=== PATIENT | female | born 1960 | race Native Hawaiian/Other Pacific Islander ===

== ENCOUNTER 2017-01-22 01:07 | Emergency (ER) | payer SELFPAY ==
--- NOTE | 2017-01-22 01:50 | C.PDOC ---
History Of Present Illness 56yo female with past medical history of hypertension, presents to ED with complaints of dizziness tonight, associated with nausea. Patient is unable to describe what dizziness feels like. Notes that it is worse with certain movements. Patient states she feels her dizziness symptoms may be due to cellphone usage. She also reports constipation- no BM in 2 days, denies any vomiting or abdominal pain. (-) Headache (-) visual changes (-) weakness or numbness (-) subjective neurological changes, (+) h/o similar symptoms in the past. Information provided by Daughter. Time Seen by Provider: 01/22/17 01:11 Chief Complaint (Nursing): GI Problem History Per: Patient History/Exam Limitations: no limitations Onset/Duration Of Symptoms: Hrs Current Symptoms Are (Timing): Still Present Past Medical History Reviewed: Historical Data, Nursing Documentation, Vital Signs Vital Signs: Last Vital Signs Temp 98.3 F 01/22/17 05:23 Pulse 82 01/22/17 05:23 Resp 17 01/22/17 05:23 BP 140/77 01/22/17 05:23 Pulse Ox 97 01/22/17 05:53 - Medical History PMH: HTN Surgical History: Tonsillectomy Family History: States: No Known Family Hx - Social History Hx Alcohol Use: No Hx Substance Use: No - Immunization History Hx Tetanus Toxoid Vaccination: No Hx Influenza Vaccination: No Hx Pneumococcal Vaccination: No Review Of Systems Except As Marked, All Systems Reviewed And Found Negative. Gastrointestinal: Positive for: Nausea, Constipation, Other (acid reflux). Negative for: Vomiting Neurological: Positive for: Dizziness Physical Exam - Physical Exam Appears: Non-toxic, No Acute Distress, Other (nauseous appearing) Skin: Normal Color, Warm, Dry Head: Atraumatic, Normacephalic Eye(s): bilateral: Normal Inspection, PERRL, EOMI Ear(s): Bilateral: Normal Nose: Normal Oral Mucosa: Moist Throat: Normal, No Erythema, No Exudate Neck: Normal, Normal ROM, Supple Chest: Symmetrical Cardiovascular: Rhythm Regular Respiratory: Normal Breath Sounds, No Accessory Muscle Use Gastrointestinal/Abdominal: Normal Exam, Soft, No Tenderness Extremity: Normal ROM Neurological/Psych: Oriented x3, Normal Speech, Normal Cognition ED Course And Treatment - Laboratory Results Result Diagrams: 01/22/17 01:51 01/22/17 01:51 ECG: Interpreted By Me, Viewed By Me ECG Rhythm: Sinus Rhythm Rate From EC O2 Sat by Pulse Oximetry: 97 (RA) Pulse Ox Interpretation: Normal Progress Note: Meclize and Zofran ordered. On re-evaluation, pt notes dizziness improved. Pt is able to ambulate without any dizziness, though notes some persists when she turns her head while laying down. Pt and daughter were offered addmission for further evaluation, they refused. A&O and 3. No neurological/focal deficts. Neck supple. Afebrile. Instructed to follow up with clinic in1-2 days. Case discussed with Dr Arora, agreed upon plan and discharge . Disposition - Disposition Disposition: HOME/ ROUTINE Disposition Time: 05:30 Condition: STABLE Additional Instructions: Follow with your doctor tomorrow. Return to ER if symptoms persist or worsen. Prescriptions: Meclizine [Meclizine*] 25 mg PO Q6 #20 tab Psyllium Husk [Metamucil] 1.7 gm PO DAILY #1 powder Instructions: Laxative, Bulk-forming (By mouth), Meclizine (By mouth), Dizziness (ED) Forms: [employer] (Chinese) - Clinical Impression Clinical Impression: Constipation, Dizziness - PA / [employer] / Resident Statement MD/DO has reviewed & agrees with the documentation as recorded. - Scribe Statement The provider has reviewed the documentation as recorded by the Paula Caceres Provider Attestation: All medical record entries made by the Belleibkeysha were at my direction and personally dictated by me. I have reviewed the chart and agree that the record accurately reflects my personal performance of the history, physical exam, medical decision making, and the department course for this patient. I have also personally directed, reviewed, and agree with the discharge instructions and disposition.
[2017-01-22 01:54] LABS: BASO # 0.1 K/uL (0.0-0.2); BASO % 0.7 % (0.0-2.0); EOS # 0.2 K/uL (0.0-0.7); EOS % 2.1 % (0.0-4.0); HEMATOCRIT 41.3 % (34.0-47.0); LYMPH # 2.8 K/uL (1.0-4.3); LYMPH % 27.6 % (20.0-40.0); MEAN CELL VOLUME 76.4 fL (81.0-99.0); MEAN CORPUSCULAR HEMOGLOBIN 25.7 pg (27.0-31.0); MEAN CORPUSCULAR HGB CONC 33.7 g/dL (33.0-37.0); MONO # 0.6 K/uL (0.0-0.8); MONO % 6.2 % (0.0-10.0); NRBC % 0.1 % (0.0-2.0); RED CELL DISTRIBUTION WIDTH 14.1 % (11.5-14.5); WHITE BLOOD COUNT 10.2 K/uL (4.8-10.8)
[2017-01-22 02:14] LABS: ALKALINE PHOSPHATASE 102 U/L (38-126); ALT/SGPT 37 U/L (9-52); AST/SGOT 24 U/L (14-36); BILIRUBIN,TOTAL 0.5 mg/dL (0.2-1.3); BLOOD UREA NITROGEN 13 mg/dL (7-17); CALCIUM 9.2 mg/dl (8.6-10.4); CARBON DIOXIDE 30 mmol/L (22-30); CHLORIDE 101 mmol/L (98-107); GFR AFRICAN-AMERICAN > 60; GLUCOSE,RANDOM 179 mg/dL (65-105); POTASSIUM 4.7 mmol/L (3.6-5.2); SODIUM 137 mmol/L (132-148); TOTAL PROTEIN 9.3 g/dL (6.3-8.3)
[2017-01-22 02:15] LABS: ALB/GLOB RATIO 0.8 (1.0-2.1)
[2017-01-22 02:41] LABS: RBC URINE 1 /hpf (0-3); URINE BACTERIA RARE (<OCC); URINE BILIRUBIN NEGATIVE (NEGATIVE); URINE BLOOD NEGATIVE (NEGATIVE); URINE COLOR Yellow (YELLOW); URINE GLUCOSE (UA) NORMAL (Normal); URINE KETONE NEGATIVE (NEGATIVE); URINE PROTEIN NEGATIVE (NEGATIVE); URINE UROBILINOGEN NORMAL mg/dL (0.2-1.0); WBC URINE 3 /hpf (0-5)
[2017-01-22 02:52] LABS: URINE LEUKOCYTE ESTERASE TRACE Leu/uL (Negative)
[2017-01-22] MEDS ORDERED: Sodium Chloride 0.9% 1,000 ML IV ONE (03:46)
[2017-01-22] MEDS ORDERED: DiphenhydrAMINE 50 mg/ml Inj IVP STA (03:46)
[2017-01-22] MEDS ORDERED: DiphenhydrAMINE 50 mg/ml Inj ONE (03:52)
--- NOTE | 2017-01-22 05:03 | CT ---
EXAM: CT Head Without Intravenous Contrast CLINICAL HISTORY: 56 years old, female; Pain; Headache and other: Dizzy TECHNIQUE: Axial computed tomography images of the head/brain without intravenous contrast. All CT scans at this facility use one or more dose reduction techniques, viz.: automated exposure control; ma/kV adjustment per patient size (including targeted exams where dose is matched to indication; i.e. head); or iterative reconstruction technique. 155 images are submitted. COMPARISON: No relevant prior studies available. FINDINGS: Brain: Mild cerebral and cerebellar volume loss. Minimal hypodensity is seen in the periventricular cerebral white matter. Prominent bilateral frontal extra-axial spaces. No hemorrhage. Ventricles: There is choroid calcification in the fourth ventricle. Bones/joints: Unremarkable. No acute fracture. Soft tissues: Unremarkable. Sinuses: Unremarkable. No acute sinusitis. Mastoid air cells: Patchy right mastoid disease. Orbits: The globe and lens are intact. Nasopharynx: There is left nasal body piercing ring. IMPRESSION: 1.No evidence of intracranial hemorrhage, midline shift or mass effect is noted.
[2017-01-22 05:24] VITALS: BP 140/77; PULSE 82; RESP 17; TEMP 98.3
[2017-01-22 05:53] VITALS: O2SAT 97
--- NOTE | 2017-01-22 07:36 | RAD ---
Abdomen four views History: Obstruction. Comparison: None available. Findings: Diffuse increased interstitial lung markings with patchy increased markings at the lung bases. Heart size within normal limits. Degenerative changes in the spine and shoulders. Relative paucity of small bowel gas. Some air and stool seen within the colon. Degenerative changes in the spine. Impression: Nonspecific bowel gas pattern with relative paucity of small bowel gas.
== END 2017-01-22 05:38 | disposition home or self-care (01) ==
LOC: C.ER 01:07
DX: K59.00 Constipation, unspecified (principal); R42 Dizziness and giddiness; I10 Essential (primary) hypertension
CPT/HCPCS: 70450; 74022; 80053; 81001; 82550; 82553; 83690; 84484; 85025; 96361; 96374; 96375; 99285; J1200; J1885; J2405; J7040